=== PATIENT | female | born 2005 | race Caucasian/White ===

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

== ENCOUNTER 2023-03-27 14:17 | Emergency (ER) | payer OTHER, SELFPAY ==
[2023-03-27 14:29] VITALS: BP 86/54; PULSE 78; RESP 16; TEMP 36.7; O2SAT 99
--- NOTE | 2023-03-27 14:45 | ED.FEMALEGU ---
HPI - Female Genitourinary General Stated complaint: Urinary Problem History of Present Illness HPI Narrative: PATIENT PRESENTS WITH BURNING WITH URINATION LOW SUPRAPUBIC PAIN AND URINARY FREQUENCY. NO FLANK PAIN NO GROSS HEMATURIA NO PELVIC PAIN NO CONCERN FOR STDS Related Data Allergies Allergy/AdvReac Type Severity Reaction Status Date / Time No Known Allergies Allergy Verified 07/10/22 09:58 Review of Systems Review of Systems: CONSTITUTIONAL: DENIES FEVER, CHILLS, OR SWEATS. EYES: DENIES VISUAL CHANGES, REDNESS, OR DISCHARGE. ENT: DENIES RHINORRHEA, CONGESTION, SORE THROAT, OR OTALGIA. CARDIOVASCULAR: DENIES CHEST PAIN, PALPITATIONS, OR EDEMA. RESPIRATORY: DENIES COUGH OR DYSPNEA. GASTROINTESTINAL: DENIES ABDOMINAL PAIN, NAUSEA, VOMITING, OR DIARRHEA. GENITOURINARY: DENIES DYSURIA OR HEMATURIA. SKIN: DENIES RASH OR ITCHING. MUSCULOSKELETAL: DENIES BACK PAIN, JOINT PAIN, OR MYALGIA. NEUROLOGIC: DENIES HEADACHE, NUMBNESS, OR WEAKNESS. PSYCHIATRIC: DENIES ANXIETY OR DEPRESSION. PMFSH Comments AT TIME OF SIGNATURE, AGREE WITH NURSING PAST MEDICAL, SURGICAL, SOCIAL AND FAMILY HISTORY. THERE IS NO RELEVANT FAMILY HISTORY PERTINENT TO THE PRESENTING COMPLAINT Exam Narrative: GENERAL: WELL-APPEARING, WELL-NOURISHED, AND IN NO ACUTE DISTRESS. HEAD: NORMOCEPHALIC, ATRAUMATIC. EYES: PERRLA AND EOMI. ENT: NARES CLEAR, NO RHINORRHEA OR EPISTAXIS. MUCOUS MEMBRANES MOIST. NECK: SUPPLE. CHEST: CLEAR TO AUSCULTATION. NO RESPIRATORY DISTRESS. HEART: REGULAR RATE AND RHYTHM. NO MURMUR HEARD. NORMAL PERIPHERAL PULSES. ABDOMEN: SOFT, NONTENDER, NONDISTENDED, NORMAL ACTIVE BOWEL SOUNDS. NO FLANK PAIN NO ABDOMINAL PAIN EXTREMITIES: NORMAL RANGE OF MOTION. NO EDEMA. SKIN: WARM, DRY, NO RASH. NEURO: NO FOCAL DEFICITS. ALERT AND ORIENTED X3. JANE COMA SCALE EYE OPENING: SPONTANEOUS 4 JANE COMA SCALE MOTOR: OBEYS COMMANDS 6 JANE COMA SCALE VERBAL: ORIENTED 5 JANE COMA SCALE TOTAL 15 Course Course Level of Care: Express Care Visit Vital Signs Vital signs: Vital Signs Temperature 36.7 C 03/27/23 14:29 Pulse Rate 78 03/27/23 14:29 Respiratory Rate 16 03/27/23 14:29 Blood Pressure 86/54 L 03/27/23 14:29 Pulse Oximetry 99 03/27/23 14:29 Oxygen Delivery Room Air 03/27/23 14:29 Temperature 36.7 C 03/27/23 14:29 Pulse Rate 78 03/27/23 14:29 Respiratory Rate 16 03/27/23 14:29 Blood Pressure 86/54 L 03/27/23 14:29 Pulse Oximetry 99 03/27/23 14:29 Oxygen Delivery Room Air 03/27/23 14:29 MDM - Female Genitourinary Lab Data Labs: Urine Glucose Negative Reference Range: Negative Urine Bilirubin 1+ Reference Range: Negative Urine Ketone Negative Reference Range: Negative Urine Specific [place] 1.030 Reference Range:1.001-1.035 Urine Blood 3+ Reference Range: Negative * * Urine pH 5.5 Reference Range: 5.0-9.0 Urine Protein 1+ Reference Range: Negative Urine Urobilinogen 0.2 Reference Range: 0.2-1.0 Urine Nitrate Positive Reference Range: Negative Urine Leukocyte 3+ Reference Range: Negative Urine Color Dark Reference Range: Yellow
== END 2023-03-27 14:50 | disposition home or self-care (01) ==
PROVIDERS: Emergency Provider Nurse Practitioner Family; PCP Obstetrics & Gynecology
DX: N39.0 Urinary tract infection, site not specified (principal)
CPT/HCPCS: 81003; 87077; 87086; 87186; 99213; G0463

== ENCOUNTER 2023-04-01 10:59 | Emergency (ER) | payer OTHER, SELFPAY ==
--- NOTE | 2023-04-01 11:02 | ED.URI ---
HPI - URI/Sore Throat General Chief Complaint: Upper Respiratory Infection Stated Complaint: throat Source: patient, family and RN notes reviewed History of Present Illness HPI Narrative: 18 yo F presents to urgent care with visitor at side. Pt states she has had a sore throat x 4 days. Pt states she had a white pus pocket on a tonsil the other day and she scraped it off with a metal blackhead remover. Pt denies any trauma from this. Pt reports subjective fevers at home. Pt reports bilateral ear pain, cough, congestion, and diarrhea. Denies any chest pain, SOB, vomiting, or abdominal pain. Pt has not taken anything for her symptoms. Related Data Allergies Allergy/AdvReac Type Severity Reaction Status Date / Time No Known Allergies Allergy Verified 07/10/22 09:58 Review of Systems Review of Systems: Pertinent positives and pertinent negatives per HPI. PMFSH Comments At the time of my signature, I reviewed and agree with the nursing past medical, surgical, social, and family history. There is no relevant family history pertinent to the patient complaint. Exam Narrative: GENERAL: This is a well-nourished, well-developed patient, in no apparent distress. HEAD: normocephalic, atraumatic. EYES: Sclera clear/white. Vision is grossly intact. EARS: External ears normal, auditory canals clear and without drainage, TMs normal without perforation. Hearing grossly intact. NOSE: External nose normal with no obvious nasal discharge, nares without redness, no rhinorrhea. THROAT: Mucous membranes moist, posterior pharynx erythremic. Tonsils are 2+ bilaterally. no exudte noted. NECK: Neck supple, non-tender without lymphadenopathy, masses or thyromegaly. CARDIOVASCULAR: Regular rate and rhythm without murmurs, gallops, or rubs. RESPIRATORY: Clear to auscultation. Breath sounds equal bilaterally. No wheezes, rales, or rhonchi. GASTROINTESTINAL: Abdomen soft, non-tender, nondistended. Bowel sounds are active. No hepato-splenomegaly, or palpable masses. No guarding. SKIN: warm, intact with no suspicious lesions or rash, good texture and turgor. NEURO: awake, alert, and oriented to person, place and time. There were no obvious focal neurologic abnormalities. EXTREMITIES: No clubbing, cyanosis, or edema. No joint tenderness, effusion, or edema noted. BACK: Nontender without deformity or crepitus. No flank tenderness. Course Course Level of Care: Express Care Visit Vital Signs Vital signs: Vital Signs Temperature 99 F 04/01/23 11:03 Pulse Rate 89 04/01/23 11:03 Respiratory Rate 18 04/01/23 11:03 Blood Pressure 96/77 L 04/01/23 11:03 Pulse Oximetry 98 04/01/23 11:03 Oxygen Delivery Room Air 04/01/23 11:03 Temperature 99 F 04/01/23 11:03 Pulse Rate 89 04/01/23 11:03 Respiratory Rate 18 04/01/23 11:03 Blood Pressure 96/77 L 04/01/23 11:03 Pulse Oximetry 98 04/01/23 11:03 Oxygen Delivery Room Air 04/01/23 11:03 Reviewed MDM - URI/Sore Throat MDM Narrative Medical decision making narrative: Rapid strep is negative in the office; however we will send to the lab for confirmation; there is a small percentage chance that it can come back positive; if it is, we will call you in 2-3days; and your prescription will be call in to your pharmacy. However, there is NO indication for antibiotic at this time. -Increase your fluids and Vitamin C. -Oral rinses such as: Salt water gargles and/or may use topical anesthetic (eg. Chloraseptic spray) or lozenges to relieve dryness or throat pain. -Take tylenol and ibuprofen as needed for pain and fever as directed. -Frequent hand washing or hand lead web developer is one of the best ways to prevent spread of infection. -Follow up with primary care provider in 2-3 days if condition is not improving or seek ER visit if your child starts breathing fast/has trouble breathing, is not drinking enough fluids, muffle voice, difficulty opening the mouth or will not wake up o
[2023-04-01 11:03] VITALS: BP 96/77; PULSE 89; RESP 18; TEMP 37.2; O2SAT 98
== END 2023-04-01 11:26 | disposition home or self-care (01) ==
PROVIDERS: Emergency Provider Nurse Practitioner Family
DX: J02.9 Acute pharyngitis, unspecified (principal)
CPT/HCPCS: 87081; 87880; 99213; G0463